=== PATIENT | male | born 1990 | race Two or more races ===

== ENCOUNTER 2018-10-12 20:37 | Emergency (ER) | payer MEDICAID ==
[~2018-10-12] VITALS: Ht 185.4 cm; Wt 127.3 kg
[2018-10-12 20:52] VITALS: BP 132/87
[2018-10-12] MEDS ORDERED: NALOXONE HCL 1 MG/ML 2 ML SYG IVP ONE (21:15)
[2018-10-12] MEDS ORDERED: SODIUM CHLORIDE 0.9% 1,000 ML IV ONE (21:30)
== END 2018-10-12 21:50 | disposition left against medical advice (07) ==
LOC: EDBD 20:40 → EMS 20:40
DX: T40.0X1A Poisoning by opium, accidental (unintentional), initial encounter (principal); J96.90 Respiratory failure, unspecified, unspecified whether with hypoxia or hypercapnia; Y92.89 Other specified places as the place of occurrence of the external cause
CPT/HCPCS: 82962; 93005; 96374; 99291; J2310; J7030